=== PATIENT | male | born 1990 | race Caucasian/White ===

== ENCOUNTER 2024-07-04 19:58 | Emergency (ER) | payer SELFPAY ==
[~2024-07-04] VITALS: Ht 160 cm; Wt 64.0 kg
[2024-07-04 20:21] VITALS: O2SAT 100
[2024-07-04 20:58] LABS: BASOPHILS % 0.4 % (0.0-2.0); EOSINOPHILS % 1.3 % (0.0-5.0); HEMOGLOBIN. 14.2 g/dL (14.0-18.0); LYMPHOCYTES % 8.2 % (20.0-50.0); MEAN CORPUSCULAR HEMOGLOBIN 32.5 pg (28.0-32.0); MEAN CORPUSCULAR HGB CONC 34.7 g/dL (31.0-37.0); MEAN CORPUSCULAR VOLUME 93.7 fL (80.0-94.0); MEAN PLATELET VOLUME 6.4 fl (7.4-10.4); MONOCYTES % 5.2 % (2.0-8.0); NEUTROPHILS % 84.9 % (40.0-76.0); PLATELET 265 x1000/uL (130-400); RED BLOOD CELL COUNT 4.38 mill/uL (4.7-6.1); WHITE BLOOD COUNT 9.3 x1000/uL (4.5-11.0)
[2024-07-04 21:09] LABS: CHLORIDE 106 mEq/L (98-107); SODIUM 139 mEq/L (136-145)
[2024-07-04 21:10] LABS: CALCIUM 9.5 mg/dL (8.7-10.4); CARBON DIOXIDE 21 mEq/L (21-32)
[2024-07-04 21:15] LABS: CREATININE 1.1 mg/dL (0.6-1.3); GLUCOSE 96 mg/dL (70-105); UREA NITROGEN BLOOD 12 mg/dL (9-23)
[2024-07-04 21:16] LABS: ETHANOL BLOOD 30 mg/dL (<10)
[2024-07-04 21:17] LABS: ALANINE AMINOTRANSFERASE 20 IU/L (10-49); ALBUMIN 4.5 g/dL (3.2-4.8); ASPARTATE AMINOTRANSFERASE 28 IU/L (<34); BILIRUBIN DIRECT 0.2 mg/dL (<=3.0)
[2024-07-04 21:18] LABS: BILIRUBIN TOTAL 0.5 mg/dL (0.1-1.0); PROTEIN TOTAL 7.3 g/dL (6.0-8.3)
[2024-07-04] MEDS ORDERED: VANCOMYCIN 1000MG/250ML 250 ML IV SCH (23:45)
[2024-07-05] MEDS: TETANUS, DIPHTHERIA, PERTUSSIS VAC/PF 0.5ML (>10YR OLD) IM ONE (00:08)
[2024-07-05] MEDS: CEFTRIAXONE 2GM/50ML 50 ML IV ONE (00:08)
[2024-07-05] MEDS: VANCOMYCIN 1G PREMIX 200 ML IV NR (00:09)
[2024-07-05 00:54] VITALS: BP 141/86; PULSE 68; RESP 15; TEMP 36.44736; O2SAT 98
== END 2024-07-05 01:16 ==
LOC: ER 19:58
DX: S02.0XXB Fracture of vault of skull, initial encounter for open fracture (principal); W22.8XXA Striking against or struck by other objects, initial encounter; Y93.89 Activity, other specified; Y92.89 Other specified places as the place of occurrence of the external cause; Y99.8 Other external cause status
CPT/HCPCS: 80076; 80048; 80320; 85025; 36415; 70450; 72125; 90715; 99291; 96367; 90471; 96365; J0696; Z7610 ×2; J3370; G0480